=== PATIENT | male | born 1935 | race Caucasian/White ===

== ENCOUNTER 2022-12-24 08:16 | Observation (INO) | payer MEDICARE ==
[~2022-12-24] VITALS: Ht 165.1 cm; Wt 59.8 kg
[2022-12-24 08:45] LABS: BASOPHILS # (AUTO) 0.02 K/uL (0.00-0.20); BASOPHILS % (AUTO) 0.3 % (0.0-5.0); EOSINOPHILS # (AUTO) 0.01 K/uL (0.00-0.70); EOSINOPHILS % (AUTO) 0.1 % (0.0-8.0); HEMATOCRIT 32.5 % (42-54); IMMATURE GRANULOCYTE ABSOLUTE 0.04 K/uL (0-1); LYMPHOCYTES # (AUTO) 0.9 K/uL (1.0-4.8); LYMPHOCYTES % (AUTO) 12.4 % (21.0-51.0); MEAN CORPUSCULAR HEMOGLOBIN 30.8 pg (27.0-33.0); MEAN CORPUSCULAR HGB CONC 32.6 g/dL (32.0-36.0); MEAN CORPUSCULAR VOLUME 94.5 fL (79-99); MONOCYTES # (AUTO) 0.5 K/uL (0.1-1.0); MONOCYTES % (AUTO) 6.7 % (3.0-13.0); NEUTROPHILS # (AUTO) 5.8 K/uL (1.8-7.7); NEUTROPHILS % (AUTO) 79.9 % (40.0-77.0); PLATELET COUNT (AUTO) 169 K/uL (130-400); RED BLOOD CELL COUNT(AUTO) 3.44 MIL/uL (4.50-6.20); WHITE BLOOD COUNT (AUTO) 7.2 K/uL (4.8-10.8)
[2022-12-24 08:54] LABS: CREATININE 2.4 mg/dL (0.5-1.5); POTASSIUM 4.6 mmol/L (3.5-5.1)
[2022-12-24 09:06] LABS: SARS-CoV-2, RNA, NAAT NEGATIVE SARS CoV-2 (NEGATIVE)
[2022-12-24 09:07] LABS: INFLUENZA TYPE A Negative For Type A (NEGATIVE); INFLUENZA TYPE B Negative For Type B (NEGATIVE)
[2022-12-24 09:16] LABS: ALBUMIN 3.5 g/dL (3.5-5.0); BILIRUBIN,TOTAL 0.5 mg/dL (0.2-1.0); TOTAL PROTEIN, SERUM 7.3 g/dL (6.0-8.3)
[2022-12-24 09:33] LABS: APPEARANCE,URINE CLEAR (CLEAR); BILIRUBIN,URINE NEGATIVE (NEGATIVE); GLUCOSE, URINE (UA) NEGATIVE (NEGATIVE); KETONES,URINE NEGATIVE (NEGATIVE); LEUKOCYTE ESTERASE ,URINE NEGATIVE Leu/uL (NEGATIVE); NITRATE,URINE NEGATIVE (NEGATIVE); OCCULT BLOOD,URINE NEGATIVE (NEGATIVE); PROTEIN,URINE 20 mg/dL (NEGATIVE); UROBILINOGEN,URINE 0.2 mg/dL (0.2-1.0)
[2022-12-24 09:34] LABS: B-TYPE NATRIURETIC PEPTIDE 126 pg/mL (0-100)
[2022-12-24 09:36] LABS: ADD UA MICROSCOPIC YES; COLOR,URINE YELLOW (YELLOW)
[2022-12-24 09:37] LABS: WBC,URINE 0-1 /HPF (0-1)
[2022-12-24] MEDS ORDERED: HYDROCODONE/ACETAMINOPHEN 5/325 MG TAB PO PRN ×2 (10:30)
[2022-12-24] MEDS ORDERED: LISINOPRIL 20 MG TABLET PO ONE (11:00)
[2022-12-24] MEDS ORDERED: LISINOPRIL 20 MG TABLET ONE (11:05)
[2022-12-24 11:37] LABS: MAGNESIUM 2.2 mg/dL (1.80-2.40); THYROID STIMULATING HORMONE 1.15 uIU/mL (0.36-3.74)
[2022-12-24 11:50] VITALS: BP 197/64; PULSE 47; RESP 18
[2022-12-24] MEDS ORDERED: AMLODIPINE 5 MG TAB PO ONE (12:00)
[2022-12-24 12:27] LABS: CREATININE,URINE RANDOM 86 mg/dL (30-135); SODIUM,URINE RANDOM 100 mmol/l (40-220)
[2022-12-24] MEDS: HYDRALAZINE 20MG/ML VIAL IV PRN ×2 (12:42→18:02)
[2022-12-24 15:07] VITALS: O2SAT 100
[2022-12-24] MEDS ORDERED: QUET25TA36 PO (15:27)
[2022-12-24] MEDS ORDERED: RISP0.5T66 PO (15:27)
[2022-12-24] MEDS ORDERED: LISI1TAB53 PO (15:28)
[2022-12-24] MEDS ORDERED: NIFE-39 PO (15:29)
[2022-12-24] MEDS ORDERED: AMOX1TAB15 PO (15:30)
[2022-12-24] MEDS ORDERED: PRED10TA3 PO (15:31)
[2022-12-24 16:30] VITALS: BP 175/58; PULSE 51; RESP 18
[2022-12-24 19:10] VITALS: BP 159/81; PULSE 69; RESP 18
[2022-12-24 20:00] VITALS: O2SAT 99
[2022-12-24] MEDS ORDERED: GUAIFENESIN-DM 200/20 MG 10 ML PO PRN (21:00)
[2022-12-24] MEDS ORDERED: FAMOTIDINE 20MG VIAL IV PRN (21:00)
[2022-12-24] MEDS ORDERED: FAMOTIDINE 20MG TAB PO SCH (21:00)
[2022-12-24 23:52] VITALS: BP 128/47; PULSE 50; RESP 16
[2022-12-25 03:47] LABS: BASOPHILS # (AUTO) 0.06 K/uL (0.00-0.20); BASOPHILS % (AUTO) 0.8 % (0.0-5.0); EOSINOPHILS # (AUTO) 0.17 K/uL (0.00-0.70); EOSINOPHILS % (AUTO) 2.1 % (0.0-8.0); HEMATOCRIT 31.8 % (42-54); IMMATURE GRANULOCYTE ABSOLUTE 0.04 K/uL (0-1); LYMPHOCYTES # (AUTO) 1.1 K/uL (1.0-4.8); LYMPHOCYTES % (AUTO) 14.1 % (21.0-51.0); MEAN CORPUSCULAR HEMOGLOBIN 30.3 pg (27.0-33.0); MEAN CORPUSCULAR HGB CONC 31.8 g/dL (32.0-36.0); MEAN CORPUSCULAR VOLUME 95.5 fL (79-99); MONOCYTES # (AUTO) 0.8 K/uL (0.1-1.0); MONOCYTES % (AUTO) 9.7 % (3.0-13.0); NEUTROPHILS # (AUTO) 5.8 K/uL (1.8-7.7); NEUTROPHILS % (AUTO) 72.8 % (40.0-77.0); PLATELET COUNT (AUTO) 171 K/uL (130-400); RED BLOOD CELL COUNT(AUTO) 3.33 MIL/uL (4.50-6.20)
[2022-12-25 04:03] LABS: ALBUMIN 3.2 g/dL (3.5-5.0); BILIRUBIN,TOTAL 0.4 mg/dL (0.2-1.0); CREATININE 2.3 mg/dL (0.5-1.5); POTASSIUM 4.4 mmol/L (3.5-5.1); TOTAL PROTEIN, SERUM 6.6 g/dL (6.0-8.3)
[2022-12-25] MEDS ORDERED: ATROPINE 1MG SYG IVP ONE ×2 (04:07→05:00)
[2022-12-25 04:12] VITALS: BP 146/60; PULSE 58; RESP 16
[2022-12-25 08:25] VITALS: BP 150/76; PULSE 56; RESP 18
[2022-12-25] MEDS ORDERED: HYDROCHLOROTHIAZIDE 25 MG TABLET PO SCH (09:00)
[2022-12-25] MEDS ORDERED: TAMSULOSIN HCL 0.4 MG CAP.ER.24H PO SCH (09:00)
[2022-12-25] MEDS ORDERED: LISINOPRIL 40 MG TABLET PO SCH (09:00)
[2022-12-25] MEDS ORDERED: AMLODIPINE 5 MG TAB PO SCH (09:00)
[2022-12-25] MEDS ORDERED: ENOXAPARIN SODIUM 30 MG/0.3 ML SQ SCH (09:00)
[2022-12-25 12:30] VITALS: BP 177/67; PULSE 49; RESP 18
[2022-12-25 12:48] VITALS: O2SAT 99
[2022-12-25] MEDS ORDERED: TAMS-1 PO (14:41)
[2022-12-25] MEDS ORDERED: HYDR-4153 PO (14:41)
[2022-12-25] MEDS ORDERED: AEC81 PO (14:41)
[2022-12-25] MEDS ORDERED: ATORVASTATIN 10 MG TABLET PO SCH (21:00)
[2022-12-26] MEDS ORDERED: ASPIRIN 81 MG EC TAB PO SCH (09:00)
== END 2022-12-25 16:53 | disposition home or self-care (01) ==
LOC: EDH 08:16 → EDHIP 10:16 → INTOOBSV 10:16 → 2DH 11:50
PROVIDERS: ADMIT Hospitalist; ATTEND Hospitalist
DX: I16.0 Hypertensive urgency (principal); Z20.822 Contact with and (suspected) exposure to COVID-19; R00.1 Bradycardia, unspecified; N17.9 Acute kidney failure, unspecified; J06.9 Acute upper respiratory infection, unspecified; I25.10 Atherosclerotic heart disease of native coronary artery without angina pectoris; D64.9 Anemia, unspecified; I10 Essential (primary) hypertension; R62.7 Adult failure to thrive; I77.9 Disorder of arteries and arterioles, unspecified; R53.81 Other malaise; E78.00 Pure hypercholesterolemia, unspecified; N40.0 Benign prostatic hyperplasia without lower urinary tract symptoms; Z85.09 Personal history of malignant neoplasm of other digestive organs; Z79.899 Other long term (current) drug therapy; Z85.05 Personal history of malignant neoplasm of liver
CPT/HCPCS: 99285; 93306; 93880; 96374; 76770; 71045; 87635; 84443; 82550; 82570; 83735 ×2; 83874; 84484 ×2; 80053 ×2; 84300; 83880; 85025 ×2; 87804 ×2; 83605; 81001; 36415 ×2; 93005 ×2; 96376; 96372; 84153; C9803; J0360 ×2; G0378; J1650; J0461

== ENCOUNTER 2023-08-02 08:19 | Day surgery (SDC) | payer MEDICARE ==
[2023-07-27 12:46] LABS: APPEARANCE,URINE CLEAR (CLEAR); BILIRUBIN,URINE NEGATIVE (NEGATIVE); COLOR,URINE LIGHT-YELLOW (YELLOW); GLUCOSE, URINE (UA) NEGATIVE (NEGATIVE); KETONES,URINE NEGATIVE (NEGATIVE); LEUKOCYTE ESTERASE ,URINE NEGATIVE Leu/uL (NEGATIVE); NITRATE,URINE NEGATIVE (NEGATIVE); OCCULT BLOOD,URINE NEGATIVE (NEGATIVE); PROTEIN,URINE NEGATIVE (NEGATIVE); UROBILINOGEN,URINE 0.2 mg/dL (0.2-1.0)
[2023-07-27 12:47] LABS: ADD UA MICROSCOPIC NO
[2023-07-27 13:14] LABS: BASOPHILS # (AUTO) 0.03 K/uL (0.00-0.20); BASOPHILS % (AUTO) 0.5 % (0.0-5.0); EOSINOPHILS # (AUTO) 0.18 K/uL (0.00-0.70); EOSINOPHILS % (AUTO) 2.7 % (0.0-8.0); HEMATOCRIT 26.8 % (42-54); IMMATURE GRANULOCYTE ABSOLUTE 0.02 K/uL (0-1); LYMPHOCYTES # (AUTO) 0.7 K/uL (1.0-4.8); LYMPHOCYTES % (AUTO) 10.3 % (21.0-51.0); MEAN CORPUSCULAR HEMOGLOBIN 31.8 pg (27.0-33.0); MEAN CORPUSCULAR HGB CONC 33.2 g/dL (32.0-36.0); MEAN CORPUSCULAR VOLUME 95.7 fL (79-99); MONOCYTES # (AUTO) 0.7 K/uL (0.1-1.0); NEUTROPHILS % (AUTO) 76.2 % (40.0-77.0); PLATELET COUNT (AUTO) 161 K/uL (130-400); RED CELL DISTRIBUTION WIDTH 12.9 % (11.0-15.5); WHITE BLOOD COUNT (AUTO) 6.6 K/uL (4.8-10.8)
[2023-07-27 13:17] LABS: APPEARANCE,URINE CLEAR (CLEAR); BILIRUBIN,URINE NEGATIVE (NEGATIVE); COLOR,URINE LIGHT-YELLOW (YELLOW); GLUCOSE, URINE (UA) NEGATIVE (NEGATIVE); KETONES,URINE NEGATIVE (NEGATIVE); LEUKOCYTE ESTERASE ,URINE NEGATIVE Leu/uL (NEGATIVE); NITRATE,URINE NEGATIVE (NEGATIVE); OCCULT BLOOD,URINE NEGATIVE (NEGATIVE); PROTEIN,URINE NEGATIVE (NEGATIVE); UROBILINOGEN,URINE 0.2 mg/dL (0.2-1.0)
[2023-07-27 13:23] LABS: CREATININE 2.7 mg/dL (0.5-1.3); POTASSIUM 4.3 mmol/L (3.5-5.1)
[2023-07-27 13:30] LABS: ADD UA MICROSCOPIC NO
[2023-07-27 13:43] VITALS: BP 124/47; PULSE 58; RESP 18
[~2023-08-02] VITALS: Ht 165.1 cm; Wt 57.1 kg
[2023-08-02] VITALS (16 sets, daily range): BP systolic 87–153; BP diastolic 31–84; PULSE 56–94; RESP 15–17
[2023-08-02] MEDS: CEFTRIAXONE 1G VIAL IVPB SCH (06:00)
[2023-08-02] MEDS: GENTAMICIN 80 MG/NS 100 ML PB 100 ML IV SCH (06:00)
[~2023-08-02 08:19] MED LIST: AMLO-258 PO; ESCI5TAB16 PO; FINA5TAB41 PO; HYDR25TA67 PO; LISI20TA24 PO; RISP0.5T66 PO; SODI650T PO
[2023-08-02] MEDS: LACTATED RINGERS 1000ML 1,000 ML IV ONE (09:24)
[2023-08-02] MEDS ORDERED: LIDOCAINE PF 100MG/5ML (2%) SYRINGE 5ML ONE (11:03)
[2023-08-02] MEDS ORDERED: PROPOFOL 10 MG/ML 20ML VIAL IV ONE (11:04)
[2023-08-02] MEDS ORDERED: EPHEDRINE SULFATE 50 MG/ML AMPULE ONE (11:04)
[2023-08-02] MEDS: GENTAMICIN 80 MG/NS 100 ML PB 100 ML IV ONE (11:15)
[2023-08-02] MEDS ORDERED: GLYCOPYRROLATE 0.2 MG/ML 5 ML VIAL ONE (11:23)
[2023-08-02] MEDS: CEFTRIAXONE 1G VIAL ONE (11:25)
[2023-08-02] MEDS: EPHEDRINE SULFATE 50 MG/ML AMPULE ONE (12:11)
== END 2023-08-02 13:20 | disposition home or self-care (01) ==
LOC: DAH 08:19
PROVIDERS: ATTEND Urology
DX: R97.20 Elevated prostate specific antigen [PSA] (principal); N40.1 Benign prostatic hyperplasia with lower urinary tract symptoms; N39.498 Other specified urinary incontinence; N41.0 Acute prostatitis; N41.1 Chronic prostatitis; Z79.01 Long term (current) use of anticoagulants; Z79.899 Other long term (current) drug therapy; Z98.890 Other specified postprocedural states
CPT/HCPCS: 80048; 85025; 87088 ×2; 84153; 81003; 36415; 71045; 93005; 55700; 88305; 76872; 76942; A6260; A4663; J7120; J2001; J3490 ×3; J0696; J2704; J1580; A4215 ×2; A4649; A4223; A4222; A4221; A4600